=== PATIENT | male | born 1945 | race Native Hawaiian/Other Pacific Islander ===

== ENCOUNTER 2016-10-28 07:21 | Outpatient (CLI) | payer OTHER | END 2016-10-28 19:11 | disposition home or self-care (01) | LOC: NM 07:21 | DX: R00.2 Palpitations (principal) | CPT/HCPCS: A9500 ==

== ENCOUNTER 2019-09-12 13:50 | Outpatient (CLI) | payer OTHER | END 2019-09-12 19:16 | disposition home or self-care (01) | LOC: LAB 13:50 | DX: R00.2 Palpitations (principal) | CPT/HCPCS: 84484 ==